=== PATIENT | female | born 2000 | race Caucasian/White ===

== ENCOUNTER 2024-12-14 12:21 | Emergency (ER) | payer OTHER, SELFPAY ==
[2024-12-14 12:22] VITALS: BP 118/79; PULSE 70; RESP 14; TEMP 36.8; O2SAT 98; BMI 19.4
--- NOTE | 2024-12-14 13:06 | CT_ITS ---
EXAM: CT Head Without Intravenous Contrast CLINICAL INDICATION: SEIZURE TECHNIQUE: Axial computed tomography images of the head/brain without intravenous contrast. This CT exam was performed using one or more of the following dose reduction techniques: automated exposure control, adjustment of the mA and/or kV according to patient size, and/or use of iterative reconstruction technique. COMPARISON: No relevant prior studies available. FINDINGS: BRAIN AND EXTRA-AXIAL SPACES: No acute intracranial hemorrhage, midline shift or mass effect. If symptoms persist, further evaluation with MRI is recommended. No significant white matter disease. BONES/JOINTS: Unremarkable. No acute fracture. SOFT TISSUES: Unremarkable. SINUSES: Unremarkable as visualized. No acute sinusitis. MASTOID AIR CELLS: Unremarkable as visualized. No mastoid effusion. CT/Brain/Head without Contrast IMPRESSION: No acute intracranial hemorrhage, midline shift or mass effect. If symptoms per sist, further evaluation with MRI is recommended. Reading [facility]
--- NOTE | 2024-12-14 13:07 | EX.ED.DYSGE1 ---
HPI History of Present Illness Chief Complaint: Seizure Informant: patient, family and PCP Narrative Narrative: Presents to the ED for evaluation witnessed seizure while in PCP office. Provider Diann Donahue is here in the department was also close family friend. Patient is in the office for screening first time Pap smear. This was at 1150, this was performed. Patient sat up felt lightheaded. She laid down and had a witnessed 20 second tonic-clonic activities she came back around shortly after was slightly confused not back to normal. She had sinus congestion 2 weeks ago. No cough. No vomiting diarrhea. Finished a 5-day menstrual period on the third 5 days ago. This is typical for her. Parents also here no history of seizures no family history of seizures. She has had migraine symptoms since the age of 5. She seen [facility] age 21, no images has ever been performed. There was no incontinence of urine or stools. No tongue biting. Prior similar symptoms: No PFSH PFSH Medical History no medical history Home Medications ?Medication ?Instructions ?Recorded ?Last Taken ?Type ondansetron 4 mg disintegrating 4 mg PO Q8H PRN PRN nausea/vomiting 12/14/24 Unknown History tablet rizatriptan 10 mg tablet 10 mg PO PRN PRN migraine headache 12/14/24 Unknown History Allergy/AdvReac Type Severity Reaction Status Date / Time amoxicillin AdvReac Severe Nausea/Vom/ Verified 12/14/24 12:26 Diarrhea Social History Smoking Status: Never smoker ROS ROS ED Constitutional Constitutional ED: Denies chills, fever(s) or sweats ENT ENT ED: Denies sore throat Cardiovascular Cardiovascular: Denies chest pain, leg edema, palpitations or racing heartbeat Respiratory/Chest Respiratory/Chest: Denies cough, dyspnea or dyspnea on exertion Gastrointestinal Gastrointestinal: Denies abdominal pain, diarrhea, nausea or vomiting Genitourinary Genitourinary ED: Denies dysuria, hematuria or urinary frequency Musculoskeletal Musculoskeletal: Denies back pain, extremity pain or neck pain Integumentary Denies rash or wounds Neurologic Neurologic: Reports other Details: Seizure ; Denies headache(s), paresthesias or weakness EXAM Physical Exam Const Vital Signs: 12/14/24 12:22 12/14/24 14:27 Temperature 98.3 F Temperature Source Oral Pulse Rate 70 80 Respiratory Rate 14 16 Blood Pressure 118/79 122/64 H Blood Pressure Mean 92 83 Pulse Ox 98 98 Oxygen Delivery Method Room Air Room Air Positive well nourished and well developed General Appearance ED: well developed and NAD HEENT Reports moist mucous membranes HEENT Narrative: No tongue abrasion or laceration normocephalic and atraumatic Eyes General Eye ED: Yes normal appearance of both eyes Neck full ROM Chest Wall Chest: Negative for tenderness Resp normal respiratory effort and normal air movement Effort and Inspection: symmetric chest movement; Negative for respiratory distress Cardio regular rate, regular rhythm and no murmurs Peripheral Pulses: pulses 2+ throughout GI normal to inspection, nondistended, normoactive bowel sounds and non-tender Palpation: Negative for guarding or rebound tenderness present Extremity normal to inspection General Extremety ED: Negative for edema or tenderness General Extremity: Negative for edema Neuro oriented x3, CN's II-XII intact bilaterally and no sensory deficits noted Neuro Narrative: No focal deficits Sensorium / Orientation: awake and alert Skin no rashes or lesions noted and no wounds MDM MDM MDM Narrative Medical decision making narrative: Interventions / MDM: Differential diagnosis: New onset seizure, syncope Diagnosis considered but do not suspect: N/A My EKG interpretation: N/A Imaging independently reviewed and interpreted by myself: CT brain: No acute process also read by radiology. External documents reviewed: N/A Test considered but not ordered:N/A ED course: Patient had witnessed seizure activity lasting 20 seconds. Did report lightheaded symptoms with eyes rolling back. Possible syncope. Patient reports did not eat this morning. She is currently back to baseline. Seizure precautions initiated. Will check labs urine will check CT brain with new onset symptoms. 1412: CT brain negative labs with normal hemoglobin normal electrolytes. Asymptomatic reevaluation. Patient getting urine sample at this time. 1455: Urine negative for infection. No additional seizure activities. Discussed seizure precautions at home with no driving, swimming or bathing alone, climbing heights or operating heavy machinery. Per her primary care team they will help with assistance with neurologist Dr. Zhu for further evaluation and clearance. Discussed tricked return precaution with patient and parents. All questions were answered. Re-evaluation: stable Disposition discussed with patient/family/significant other: Patient and parents Case discussed with consulting clinician: Primary care team This note was generated with Dragon dictation software. It may contain incorrect words, spelling, and punctuation that were not noted in checking the note before signing. Lab Data Attestation: I reviewed the patient's lab results. Labs: Laboratory Results - last 24 hr 12/14/24 12/14/24 13:14 14:25 WBC 10.1 RBC 4.30 Hgb 13.6 Hct 38.7 MCV 90.0 MCH 31.6 MCHC 35.1 RDW Std Deviation 37.7 RDW Coeff of Yanira 11.6 Plt Count 286 MPV 9.7 Immature Gran % (Auto) 0.400 Neut % (Auto) 80.9 H Lymph % (Auto) 12.6 L Cole % (Auto) 4.9 Eos % (Auto) 0.6 Baso % (Auto) 0.6 Absolute Neuts (auto) 8.2 H Absolute Lymphs (auto) 1.28 Nucleated RBC % 0 Sodium 138 Potassium 3.9 Chloride 102 Carbon Dioxide 22.2 Anion Gap 13 BUN 12 Creatinine 0.80 Estim Creat Clear Calc 101.00 Est GFR (MDRD) Non-Af 107 BUN/Creatinine Ratio 14.8 Glucose 94 Calcium 9.4 Urine Color Straw Urine Clarity Sl. Cloudy Urine pH 8.0 Ur Specific [facility] 1.015 Urine Protein 15 H Urine Glucose (UA) Normal Urine Ketones 15 H Urine Occult Blood Negative Urine Nitrite Negative Urine Bilirubin Negative Urine Urobilinogen Normal Ur Leukocyte Esterase Negative Urine RBC 0-5 SEEN Urine WBC 0-5 SEEN Ur Squamous Epith Cells 0-5 SEEN Amorphous Sediment 1+ Urine Bacteria 0 SEEN Urine Mucus 0 SEEN Urine Test Negative Radiography Diagnostic Testing: Clinical Impression(s) from Imaging Studies Brain CT 12/14/24 13:06 IMPRESSION: No acute intracranial hemorrhage, midline shift or mass effect. If symptoms persist, further evaluation with MRI is recommended. Reading Location: [facility] Discharge Plan Triage Chief Complaint: Seizure ED Provider: Gal Max Dx/Rx/DC Orders Clinical Impression: Witnessed seizure-like activity Instructions: ED Seizure [facility] Adult Prescriptions: No Action rizatriptan 10 mg tablet 10 mg PO PRN PRN (Reason: migraine headache) ondansetron 4 mg tablet,disintegrating 4 mg PO Q8H PRN PRN (Reason: nausea/vomiting) Primary Care Provider: Diann Donahue NP Referrals: Elliot Zhu MD [Non-Staff] - 3-5 Days Diann Donahue NP, [employer] [Primary Care Provider] - Activity Restrictions/Additional Instructions: CT brain negative. Labs normal. White count 10.1 hemoglobin 13.6. Sodium 138 potassium 3.9. Creatinine 0.8. Urine negative. No driving, bathing or swimming alone, operating heavy machinery or climbing heights until cleared by neurology. Your primary care team will help your referral to Dr. Zhu. Print Language: Zambian
[2024-12-14 13:22] LABS: Absolute Lymphocyte Count 1.28 X10^3/uL (0.83-4.51); Absolute Neutrophil Count 8.2 X10^3/uL (2.0-7.7); Basophil# 0.06 X10^3/uL; Basophil% 0.6 % (0-1); Eosinophil# 0.06 X10^3/uL; Eosinophils% 0.6 % (0-5); Hematocrit 38.7 % (37-47); Hemoglobin 13.6 g/dL (12.0-15.0); Lymphocyte # 1.28 X10^3/ul (0.83-4.51); Lymphocyte % 12.6 % (19-41); Mean Corp Hgb Conc 35.1 g/dL (32-36); Mean Corpuscular Hgb 31.6 pg (27.0-32.0); Mean Platelet Vol. 9.7 fl (6.2-12.0); Monocyte% 4.9 % (0-10); NRBC Flagged by Analyzer 0 % (0-5); Neutrophil # 8.18 X10^3/uL (2.7-7.7); Neutrophil % 80.9 % (47-70); Platelet Count 286 K/mm3 (150-450); RBC Distribution Width CV 11.6 % (11.6-14.6); RBC Distribution Width SD 37.7 fl (35.1-43.9); White Blood Count 10.1 K/mm3 (4.4-11.0)
[2024-12-14 14:04] LABS: Anion Gap 13 (5-15); BUN 12 mg/dL (4-19); BUN/Creat Ratio 14.8 RATIO (10-20); Calcium,Total 9.4 mg/dL (7.6-11.0); Carbon Dioxide 22.2 mmol/L (21.0-32.0); Chloride 102 mmol/L (98-108); EST Glomerular Filtration Rate 107 (>60); Glucose 94 mg/dL (70-99); Potassium 3.9 mmol/L (3.3-5.1); Sodium Level 138 mmol/L (133-145)
[2024-12-14 14:27] VITALS: BP 122/64; PULSE 80; RESP 16; O2SAT 98
[2024-12-14 14:33] LABS: Bacteria 0 SEEN /hpf (None Seen); Mucous, Urine 0 SEEN /hpf (<or=2+)
[2024-12-14 14:40] LABS: Color, Urine Straw (Yellow); Glucose, Dipstick Normal (Normal); Ketone-Dipstick 15 mg/dl (Negative); Leukocyte Esterase-Dipstick Negative /ul (Negative); Nitrite-Dipstick Negative (Negative); Occult Blood-Urine Negative /ul (Negative); Protein-Dipstick 15 mg/dl (Negative); Specific Gravity, Urine 1.015 (1.002-1.030); Urine Bilirubin Dipstick Negative (Negative); Urine Clarity Sl. Cloudy (Clear); Urine Urobilinogen Normal (Normal)
[2024-12-14 14:48] LABS: Red Blood Cells-Urine 0-5 SEEN /hpf (0-5); Squamous Epithelial Cells - UA 0-5 SEEN /hpf (5-10); White Blood Cells 0-5 SEEN /hpf (0-5)
[2024-12-14 14:49] LABS: Amorphous Sediment 1+; Internal QC Validated? YES +Cl - CLEAR BKGD
[2024-12-14 14:50] LABS: Pregnancy, Urine Negative Negative; Record Kit Lot#,Urine Preg 929381
[2024-12-14 15:03] VITALS: BP 114/62; PULSE 78; RESP 16; TEMP 36.2; O2SAT 99
== END 2024-12-14 15:03 | disposition home or self-care (01) ==
PROVIDERS: Emergency Provider Emergency Medicine; PCP Nurse Practitioner Family; Referring Provider Emergency Medicine; Visit Provider Emergency Medicine
DX: R56.9 Unspecified convulsions (principal); G43.909 Migraine, unspecified, not intractable, without status migrainosus; Z79.899 Other long term (current) drug therapy
CPT/HCPCS: 70450; 80048; 81001; 81025; 85025; 99285; A4216